=== PATIENT | male | born 1965 | race Caucasian/White ===

== ENCOUNTER 2017-02-26 17:04 | Emergency (ER) | payer SELFPAY ==
[2017-02-26] MEDS ORDERED: Ketorolac 60 MG/2 ML SDV IM ONE (19:13)
[2017-02-26] MEDS ORDERED: Acetaminophen/HYDROcodone 325-5 MG Tab PO ONE (19:33)
[2017-02-26] MEDS ORDERED: Cyclobenzaprine 10 MG Tab PO ONE (19:33)
[2017-02-26 21:33] VITALS: BP 122/79
--- NOTE | 2017-02-28 15:52 | ER ---
DATE SEEN: 02/26/2017 REASON FOR VISIT: Back pain. HISTORY OF PRESENT ILLNESS: A 51-year-old male with back pain. It has been going on for a month, insidious onset, moderate to severe with no radiation, and lying down makes it worse. REVIEW OF SYSTEMS: No weakness of the legs. No fever or urinary symptoms. PAST MEDICAL HISTORY: Otherwise healthy. 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 PHYSICAL EXAMINATION: VITAL SIGNS: Afebrile. Normal vital signs. MUSCULOSKELETAL: Low back, no obvious swelling. There is tenderness on the lumbar spine. Normal range of motion. Normal gait and station. Straight leg raising test negative. NEUROLOGIC: Normal and symmetric deep tendon reflexes. IMPRESSION: Chronic back pain, new diagnosis. PLAN: Ketorolac 60 mg IM, hydrocodone and Flexeril. I advised him to see his physician on Thursday to discuss physical therapy evaluation and treatment. Time seen 1900 hours. /[id number] DAYANARA/JAM
== END 2017-02-26 19:55 | disposition home or self-care (01) ==
LOC: FB.ED 17:04
DX: G89.29 Other chronic pain (principal); M54.9 Dorsalgia, unspecified
CPT/HCPCS: 96372; 99283; J1885; A9270-GY